=== PATIENT | female | born 1940 | race Hispanic/Latino ===

== ENCOUNTER 2016-07-04 11:31 | Outpatient (CLI) | payer OTHER ==
--- NOTE | 2016-07-05 08:17 | RAD ---
CHEST 2 VIEWS: DATE: 07/04/16. COMPARISON: None. HISTORY: Asthma and COPD. FINDINGS: No pneumothorax, pleural fluid, focal consolidation, or alveolar edema. Heart and mediastinal conto urs appear within normal limits. There is atherosclerotic calcification in the aortic arch, mild. IMPRESSION: No acute findings. POS: [facility]
== END 2016-07-04 11:32 | disposition home or self-care (01) ==
LOC: NAV RAD 11:31
PROVIDERS: ATTEND Specialist
DX: J45.909 Unspecified asthma, uncomplicated (principal); J44.9 Chronic obstructive pulmonary disease, unspecified
CPT/HCPCS: 71020